=== PATIENT | female | born 1980 | race African-American/Black ===

== ENCOUNTER 2023-01-10 14:45 | Day surgery (SDC) | payer OTHER ==
[2023-01-10] MEDS ORDERED: FERRIC CARBOXYMALTOSE 750 MG in SODIUM CHLORIDE 250 ML IVPB ONE (15:00)
[2023-01-10 15:45] VITALS: PULSE 67; TEMP 97.8
[2023-01-10 16:46] VITALS: BP 126/54; RESP 18
== END 2023-01-10 16:25 | disposition home or self-care (01) ==
LOC: FM/S 14:45 → FINFUSION 14:45
PROVIDERS: ATTEND Family Medicine
PROC: 3E033GC Introduction of Other Therapeutic Substance into Peripheral Vein, Percutaneous Approach (ICD-10-PCS; principal; 2023-01-10)
DX: D50.9 Iron deficiency anemia, unspecified (principal)
CPT/HCPCS: 96365; J1439

== ENCOUNTER 2023-01-20 13:17 | Day surgery (SDC) | payer OTHER ==
[~2023-01-20 13:17] MED LIST: FERRIC CARBOXYMALTOSE 750 MG in SODIUM CHLORIDE 250 ML IVPB ONE
[2023-01-20 13:40] VITALS: BP 125/74; PULSE 85; RESP 18; TEMP 98.7
[2023-01-20] MEDS ORDERED: FERRIC CARBOXYMALTOSE 750 MG in SODIUM CHLORIDE 250 ML IVPB ONE (13:45)
== END 2023-01-20 15:00 | disposition home or self-care (01) ==
LOC: FINFUSION 13:17 → FM/S 13:18 → FINFUSION 15:00
PROVIDERS: ATTEND Family Medicine
PROC: 3E033GC Introduction of Other Therapeutic Substance into Peripheral Vein, Percutaneous Approach (ICD-10-PCS; principal; 2023-01-20)
DX: D50.9 Iron deficiency anemia, unspecified (principal)
CPT/HCPCS: 96365; J1439

== ENCOUNTER 2023-09-03 04:09 | Day surgery (SDC) | payer OTHER ==
[2023-08-28 14:24] VITALS: BMI 29.2
[2023-09-03] MEDS ORDERED: MIDAZOLAM HCL 2 MG/2 ML SINGLE DOSE VIAL ONE (11:37)
[2023-09-03] MEDS ORDERED: KETOROLAC TROMETHAMINE 30 MG/1 ML VIAL ONE (11:44)
[2023-09-03] MEDS ORDERED: ONDANSETRON 4 MG/2 ML VIAL ONE ×2 (11:44→15:36)
[2023-09-03] MEDS ORDERED: DEXAMETHASONE SOD PHOSPHATE 4 MG/1 ML VIAL ONE (11:44)
[2023-09-03] MEDS ORDERED: LIDOCAINE HCL/PF 2% SDV 5ML VIAL ONE (11:44)
[2023-09-03] MEDS ORDERED: LABETALOL HCL 20 MG/4 ML VIAL ONE (12:26)
[2023-09-03] MEDS ORDERED: LIDOCAINE HCL 2% JELLY 6 ML TP ONE (12:36)
[2023-09-03] MEDS ORDERED: LACTATED RINGERS SOLUTION 1,000 ML IV SCH (13:00)
[2023-09-03] MEDS ORDERED: hydrALAZINE HCL 20 MG/ML VIAL ONE (13:37)
[2023-09-03] MEDS: hydrALAZINE HCL 20 MG/ML VIAL IVPUSH ONE (13:40)
[2023-09-03] MEDS ORDERED: hydrALAZINE HCL 20 MG/ML VIAL IVPUSH ONE (15:34)
[2023-09-03] MEDS ORDERED: oxyCODONE HCL 5 MG TABLET ONE (15:36)
[2023-09-03] MEDS: oxyCODONE HCL 5 MG TABLET PO PRN (15:40)
[2023-09-03] MEDS: ONDANSETRON 4 MG/2 ML VIAL IVPUSH PRN (15:40)
[2023-09-03 15:57] VITALS: RESP 18
[2023-09-03 16:28] VITALS: BP 151/90; PULSE 88; TEMP 98.9
== END 2023-09-03 04:50 | disposition home or self-care (01) ==
LOC: JASU-SURG 04:09
PROVIDERS: ATTEND Obstetrics & Gynecology
PROC: 0U5B8ZZ Destruction of Endometrium, Via Natural or Artificial Opening Endoscopic (ICD-10-PCS; principal; 2023-09-03 11:00)
DX: N93.9 Abnormal uterine and vaginal bleeding, unspecified (principal)
CPT/HCPCS: 81025; 86850; 86900; 86901; 88305-TC; 94760; J0131